=== PATIENT | female | born 1960 | race Caucasian/White ===

== ENCOUNTER 2019-01-20 06:21 | Day surgery (SDC) | payer OTHER ==
[2019-01-20] MEDS ORDERED: FENTAnyl 50 MCG/ML VIAL (07:01)
[2019-01-20] MEDS ORDERED: DEXAMETHASONE 4 MG/ML 5 ML INJ (07:01)
[2019-01-20] MEDS ORDERED: MIDAZOLAM 1 MG/ML 2 ML INJ (07:01)
[2019-01-20] MEDS ORDERED: PROPOFOL 20 ML (07:01)
[2019-01-20] MEDS ORDERED: ONDANSETRON 4 MG INJ (07:01)
[2019-01-20] MEDS ORDERED: LIDOCAINE 100 MG SYRINGE (07:01)
[2019-01-20] MEDS ORDERED: CEFAZOLIN 1 GM INJ (07:01)
[2019-01-20] MEDS ORDERED: CEFAZOLIN 2 GM/50 ML (PMX) 50 ML IVPB (07:30)
[2019-01-20] MEDS: LACTATED RINGER'S 1,000 ML IV (07:34)
[2019-01-20] MEDS ORDERED: MEPERIDINE 25 MG INJ IV (08:30)
[2019-01-20] MEDS ORDERED: DIPHENHYDRAMINE 50 MG INJ IV (08:30)
[2019-01-20] MEDS ORDERED: ONDANSETRON 4 MG INJ IV (08:30)
[2019-01-20] MEDS ORDERED: HYDROmorphONE 1 MG/5 ML IV SYRINGE IV ×2 (08:30)
== END 2019-01-20 10:10 | disposition home or self-care (01) ==
LOC: SDS 06:21
DX: N84.0 Polyp of corpus uteri (principal); R94.31 Abnormal electrocardiogram [ECG] [EKG]
CPT/HCPCS: 58558; 88305; 93005